=== PATIENT | female | born 1975 | race African-American/Black ===

== ENCOUNTER 2023-07-29 11:25 | Outpatient (OUT) | payer OTHER, SELFPAY ==
--- NOTE | 2023-07-29 11:55 | MM_ITS ---
Patient Name: DARREL GAVIRIA MR#: [id number] : 1975 Exam Date: 07/29/2023 Ordering Doctor: DR. Vangie Schuler D.O. RADIOLOGY REPORT PROCEDURE: MM TOMOSYNTHESIS SCREENING BI COMPARISON: None. INDICATIONS: Screening Calculator Name NCI Breast Cancer Risk Assessment Tool 5 Year Breast Cancer Risk 0.80% Lifetime Breast Cancer Risk 6.90% Personal Breast Cancer No Personal Ovarian Cancer No Treatments None Family Cancers None LOCATION: [facility] BREAST COMPOSITION: Extremely dense, which lowers the sensitivity of mammography. FINDINGS: DIAGNOSTIC CATEGORY 1--NEGATIVE. RIGHT BREAST: No significant suspicious finding. LEFT BREAST: No significant suspicious finding. RECOMMENDATIONS: ROUTINE MAMMOGRAM AND CLINICAL EVALUATION IN 12 MONTHS. PLEASE NOTE: A NORMAL MAMMOGRAM DOES NOT EXCLUDE THE POSSIBILITY OF BREAST CANCER. A CLINICALLY SUSPICIOUS PALPABLE LUMP SHOULD BE BIOPSIED. Dictated by: Juan Sargent M.D. on 07/29/2023 at 14:31 Approved by: Juan Sargent M.D. on 07/29/2023 at 14:33
== END 2023-07-29 11:26 | disposition home or self-care (01) ==
PROVIDERS: PCP Family Medicine; Visit Provider Family Medicine
DX: Z12.31 Encounter for screening mammogram for malignant neoplasm of breast (principal)
CPT/HCPCS: 77063; 77067

== ENCOUNTER 2024-09-07 09:21 | Outpatient (OUT) | payer OTHER, SELFPAY ==
--- OUTSIDE RECORDS SUMMARY | 2024-09-07 09:26 | XMS_ITS | CCD ---
Author Organization [facility] Inform ion Partnership [facility] Care Team Providers Care American Board Certified Orthotist Name Role Phone Zayda Leary Unavailable RUMSCHLAG, VANGIE Primary Care Unavailable NILL, Kolton Oneill Attending Unavailable RUMSCHLAG, VANGIE Primary Care Unavailable NILL, Kolton Oneill Attending Unavailable RUMSCHLAG, VANGIE Primary Care Unavailable NILL, Kolton Oneill Attending Unavailable NILL, Kolton Oneill Attending Unavailable RUMSCHLAG, VANGIE Primary Care Unavailable RUMSCHLAG, VANGIE Primary Care Unavailable RUMSCHLAG, VANGIE K Primary Care Physician [phone] NILL, DR HI Admitting Unavailable NILL, DR HI Attending Unavailable NILL, DR HI Consulting Unavailable NILL, DR HI Admitting Unavailable NILL, DR HI Attending Unavailable NILL, DR HI Consulting Unavailable LAWSON, MARIA DE JESUS Consulting Unavailable NILL, DR HI Admitting Unavailable NILL, DR HI Attending Unavailable NILL, DR HI Consulting Unavailable SHARP, ELVER Consulting Unavailable GEMBUS, FRANKLIN Consulting Unavailable Rumschlag DO, Vangie K Primary Care Provider [phone] POLY FENG Attending Unavailable RUMSCHLAG, VANGIE K Referring Unavailable RUMSCHLAG, VANGIE K Primary Care Unavailable RUMSCHLAG, VANGIE K Referring Unavailable RUMSCHLAG, VANGIE K Primary Care Unavailable JAZLYNTED Admitting Unavailable JAZLYNTED M Attending Unavailable RUMSCHLAG, VANGIE K Primary Care Unavailable JAZLYNGONZÁLEZAH M Attending Unavailable JAZLYN, MENNATALLAH M Referring Unavailable RUMSCHLAG, VANGIE K Primary Care Unavailable KIRSTY FAITH Attending Unavailable RUMSCHLAG, VANGIE K Primary Care Unavailable Allergies Allergy Classification Reported Allergen(s) Allergy Type Date of Onset Reaction(s) Facility (1 source) No Known Medication Allergies; Translations: [No Known Medication Allergies] Propensity to adverse reactions (disorder) [facility] Repository Medications Current Medications Medication Drug Class(es) Dates Sig (Normalized) Sig (Original) acetaminophen 500 mg oral tablet (2 sources) take 1 tablet by mouth every six hours as needed for pain acetaminophen (TYLENOL) 500 mg tablet Take 1 tablet (500 mg total) by mouth every 6 (six) hours as needed for pain. 0 Active amLODIPine 5 mg oral tablet (4 sources) Dihydropyridine Calcium Channel Priscilla Start: 05-16-2021 take 1 tablet by mouth in the morning amLODIPine (NORVASC) 5 mg tablet Take 1 tablet (5 mg total) by mouth in the morning. 0 05/16/2021 Active amLODIPine Besyl ate Active black cohosh extract 540 mg oral capsule (2 sources) black cohosh 540 mg capsule Take 540 mg by mouth. 0 Active loratadine 10 mg oral tablet (2 sources) Start: 3 take 1 tablet by mouth in the morning loratadine (CLARITIN) 10 mg tablet Take 1 tablet (10 mg total) by mouth in the morning. 0 07/19/2023 Active Naproxen (1 source) Nonsteroidal Anti-inflammatory Drug Naproxen Active predniSONE 20 mg oral tablet (1 source) Start: 2 take 1 tablet by mouth every twelve hours predniSONE 20 MG 1 tablet Orally bid for 5 day(s) Sep, Active Completed/Discontinued Medications Medication Drug Class(es) Dates Sig (Normalized) Sig (Original) cocoa butter 0.855 mg/mg / phenylephrine 0.0025 mg/mg / shark liver oil 0.03 mg/mg rectal suppository (1 source) alpha-1 Adrenergic Agonist Start: 01-19-2019 End: 08-12-2023 phenyleph-shark oil-cocoa butr (PREPARATION H) 0.25-3 % suppository Indications: Hemorrhoids during in second trimester , History of 2 sections , AMA (advanced maternal age) multigravida 35+, second trimester Insert 1 suppository into the rectum as needed for hemorrhoids. 12 suppository 0 01/19/2019 08/12/2023 Discontinued (Therapy completed) Problems Active Problems Problem Classification Problem Date Documented Da te Episodic/Chronic Abdominal hernia (8 sources) Obstructed incisional ventral hernia; Translations: [Other and unspecified ventral hernia with obstruction, without gangrene] Onset: 07-06-2022 Episodic Essential hypertension (2 sources) Hypertensive disorder; Translations: [Essential (primary) hypertension] Onset: 07-19-2022 05-20-2022 Chronic Headache; including migraine (1 source) Migraine 05-20-2022 Chronic Other aftercare (1 source) Other terminal carman (current) drug therapy; Translations: [OTH BUCKRAM SEWER CURRENT DRUG THERAPY] Onset: 07-19-2022 Episodic Other connective tissue disease (1 source) Diastasis recti 06-02-2022 Episodic Other connective tissue disease (1 source) Separation of muscle (nontraumatic), other site; Translations: [SEPARATION OF MUSCLE OTH SITE] Onset: 07-19-2022 Episodic Other nervous system disorders (1 source) Bilateral carpal tunnel syndrome; Translations: [Carpal tunnel syndrome, bilateral upper limbs] Chronic Other nervous system disorders (1 source) Carpal tunnel syndrome, bilateral upper limbs Onset: 10-14-2021 Resolved: 10-14-2021 Chronic Other nervous system disorders (1 source) Carpal tunnel syndrome 05-20-2022 Chronic Other screening for suspected conditions (not mental disorders or infectious disease) (3 sources) Patient encounter status; Translations: [Encounter for screening for malignant neoplasm of colon] Onset: 08-12-2023 08-11-2023 Episodic Other skin disorders (1 source) Mass of foot 05-20-2022 Episodic Sickle cell anemia (1 source) Sickle cell trait 05-20-2022 Chronic Unclassified (1 source) Body mass index 20-24 - normal 06-02-2022 Unclassified (1 source) CONTACT W/AND (SUSP) EXPOS COVID-19; Translations: [CONTACT W/AND (SUSP) EXPOS COVID-19] Onset: 07-15-2022 Unclassified (1 source) Colon Cancer Screening Onset: 08-12-2023 Unclassified (1 source) screening Onset: 09-23-2023 Past or Other Problems Problem Classification Problem Date Documented Da te Episodic/Chronic Other complications of (2 sources) Multigravida of advanced maternal age; Translations: [Supervision of elderly multigravida, first trimester] Onset: 11-03-2018 11-03-2018 Episodic Other complications of (2 sources) Uterine fibroids affecting ; Translations: [Maternal care for benign tumor of corpus uteri, first trimester] Onset: 11-03-2018 11-03-2018 Episodic Polyhydramnios and other problems of amniotic cavity (2 sources) Premature rupture of membranes; Translations: [Premature rupture of membranes, unspecified as to length of time between rupture and onset of labor, unspecified weeks of gestation] Onset: 04-11-2019 04-11-2019 Episodic Results Test Name Value Interpretation Reference Range [facility] General Surgery Office/Clini c Noteon 07-21-2022 General Surgery Office/Clinic Note Chief Complaint post operative follow up HPI Staff 7 day post operative follow up post epigastric hernia repair. Minimal discomfort, taking Ibuprofen. Denies bleeding or drainage. Reports some constipation, advised to take OTC stool softener. History of Present Illness 1 week s/p robotic assisted epigastric herniorrhaphy with mesh insertion; doing well; mild soreness controlled with ibuprofen; no drainage from incisions; some intermittent constipation; no strenuous activities. Physical Exam abd: soft, nontender, nondistended, incisions without erythema or drainage; no ecchymoses. Assessment/Plan 1. Irreducible epigastric hernia (K43.6: Other and unspecified ventral hernia with obstruction, without gangrene) doing well; continue to wear abd binder when up; no lifting > 10 lbs for 3 weeks; f/u in 2 weeks, call sooner if problems/questions. 2. Diastasis recti (M62.08: Separation of muscle (nontraumatic), other site) see # 1 Follow-up No qualifying data available Problem List/Past Medical History Ongoing BMI 23.0-23.9, adult Carpal tunnel syndrome Diastasis recti HTN (hypertension) Irreducible epigastric hernia Mass of right foot Migraines Sickle cell trait Umbilical hernia Historical No qualifying data Procedure/Surgical History Repair of epigastric hernia (07/14/2022), section, section, section, Excision of lipoma of back. Medications amLODIPine 5 mg Tab, 5 mg= 1 tab(s), Oral, Daily Allergies No Known Allergies No Known Medication Allergies Social History Alcohol - Denies Alcohol Use, 06/02/2022 Substance Abuse - Denies Substance Abuse, 06/02/2022 Tobacco Never (less than 100 in lifetime) Tobacco Use:. Never Smokeless Tobacco Use:., 06/02/2022 Family History Hypertension: Sister. Normal [facility] Comment on above: Result Comment: Elec tronically Signed By: SAIRA CHE, Kolton Oshea\Date and Time Signed: 07/21/22 17:19 EST Operative Reporton Operative Report [id number] .00CD:127 Normal [facility] PREG HCG QUALon 07-14-2022 , QUAL Negative Normal NEGATIVE [facility] Comment on above: Performed By: #### P REG #### [facility] [address] [place] [address] Dr. Dena Powers Lab Reportson 07-12-2022 Lab Reports [id number] .00CD:127 Normal [facility] Covid-19 PCR (CVDTBH)on 07-01 SARS-CoV-2 (COVID-19) RNA RACQUEL+probe Ql (Unsp spec) Not detected Normal NOT DETECTED [facility] Comment on above: Result Comment: When diagnostic testing is negative, the possibility of a false negative should be considered in the context of a patient's recent exposures and the presence of clinical signs and symptoms consistent with SARS-CoV-2. This test is not yet approved or cleared by the [place] FDA. When there are no FDA-approved or cleared tests available, and other criteria are met, FDA can make tests available under an emergency access mechanism called an Emergency Use Authorization (EUA). The EUA for this test is supported by the [place] of Health and Human Service's declaration that circumstances exist to justify the emergency use of in vitro diagnostics for the detection and/or diagnosis of the virus that causes COVID-19. This EUA will remain in effect for the duration of the COVID-19 declaration justifying emergency of IVDs, unless it is terminated or revoked by the FDA (after which the test may no longer be used). Performed By: #### C VDTBH #### [facility] [address] [place] [address] Dr. Dena Powers ECG 12-Leadon 07-02-2022 ECG 12-Lead [id number] .[id number]:127 Normal [facility] Consent for Procedure/Surger yon 06-03-2022 Consent for Procedure/Surgery [id number] .[id number]:127 [facility] Physician Referralon 022 Physician Referral [id number] .00CD:127 [facility] Vital Signs Date Time Vital Sign Value Performing Clinician Facility 09-15-2023 11:09-0500 Body height 154.9 cm Pmh 1 [facility] 09-15-2023 11:09-0500 Body mass index (BMI) [Ratio] 22.48 kg/m2 Pm 1 [facility] 09-15-2023 11:09-0500 Body weight 53.98 kg Pm 1 [facility] 08-12-2023 11:18-0500 Body mass index (BMI) [Ratio] 22.17 kg/m2 Poly Medinaoll FRUIT INSPECTOR-POWER LINE INSTALLER AND REPAIRER Work Phone: [facility] [employer] 08-12-2023 11:18-0500 Body weight 54.98 kg Poly Feng FRUIT INSPECTOR-POWER LINE INSTALLER AND REPAIRER Work Phone: [facility] [employer] [facility] 10-14-2021 12:10-0400 Body height 154.94 cm Zayda Leary Other [facility] Other 10-14-2021 12:10-0400 Body mass index (BMI) [Ratio] 23.05 kg/m2 Zayda Leary Other [facility] Other 10-14-2021 12:10-0400 Body temperature 97.1 [degF] Zayda Leary Other [facility] Other 10-14-2021 12:10-0400 Body weight 55.34 kg Zayda Leary Other [facility] Other 10-14-2021 12:10-0400 Diastolic blood pressure 90 mm[Hg] Zayda Leary Other [facility] Other 10-14-2021 12:10-0400 Respiratory rate 18 /min Zayda Leary Other [facility] Other 10-14-2021 12:10-0400 SaO2% (BldA) [Mass fraction] 100 % Zayda Leary Other [facility] Other 10-14-2021 12:10-0400 Systolic blood pressure 143 mm[Hg] Zayda Leary Other [facility] Other Encounters Encounter Date Encounter Type Care Provider Facility Start: 09-24-2023 End: 09-24-2023 Evaluation and management of inpatient KIRSTY Kaitlin FAITH [facility] Start: 09-23-2023 End: 09-24-2023 Evaluation and management of inpatient TED Mckeon JAZLYN [facility] Start: 09-15-2023 End: 09-15-[address] [facility] Pat Phone Call Provider 1 [facility] - Pre Admit Start: 09-15-2023 End: 09-15-2023 ambulatory VANGIE MARINORIChelsy [facility] Start: 08-12-2023 End: 08-12-2023 ambulatory POLY A FENG [facility] Start: 08-12-2023 End: 08-12-2023 Patient encounter procedure Poly Feng FRUIT INSPECTOR-POWER LINE INSTALLER AND REPAIRER Work Phone: [facility] Comment on above: Encounter for screen ing colonoscopy (Primary Dx) Start: 08-04-2022 ambulatory VANGIE BOLAND Facilit y:HETAL Sin Start: 08-04-2022 End: 08-04-2022 Patient encounter procedure Kolton CHÁVEZ General Surgery Saira/Said Janaury Start: 07-21-2022 End: 07-22-2022 ambulatory VANGIE JAMILALAG Facility: [facility] Start: 07-15-2022 Encounter for preprocedural laboratory examination DR KOLTON CHÁVEZ [facility] Start: 07-14-2022 End: 07-15-2022 ambulatory Kolton CHÁVEZ Facility:CD:[id number] Start: 07-10-2022 End: 07-11-[address] KOTLON CHÁVEZ Facility:[facility] Start: 07-10-2022 End: 07-11-2022 Encounter for preprocedural laboratory examination DR KOLTON CHÁVEZ Facility:[facility] Start: 07-06-2022 Encounter for preprocedural cardiovascular examination DR KOLTON CHÁVEZ [facility] Start: 07-01-2022 End: 07-02-[address] KOLTON CHÁVEZ Facility:[facility] Start: 07-01-2022 End: 07-02-2022 Encounter for preprocedural cardiovascular examination DR KOLTON CHÁVEZ Facility:[facility] Start: 06-02-2022 End: 06-03-2022 ambulatory VANGIE [facility]ILALAG [facility] Start: 05-11-2022 ambulatory VANGIE JAMILALAG Facilit y:[facility] Start: 10-14-2021 End: 10-14-2021 ambulatory Zayda Leary Other [facility] Other Start: 10-14-2021 Office outpatient ne w 20 minutes Zayda Leary [facility] Procedures Date Procedure Procedure Detail Performing Clinician Start: 07-14-2022 Repair of epigastric hernia Kolton CHÁVEZ Start: 04-11-2019 H/O: section Hx of section Polyjrezy Feng FRUIT INSPECTOR-POWER LINE INSTALLER AND REPAIRER Work Phone: section Kolton Culp Excision of lipoma o f back Kolton CHÁVEZ Plan of Treatment Date Care Activity Detail Author Start: 02-13-2029 DTaP,Tdap and Td Vaccines (2 - Td or Tdap) DTaP,Tdap and Td Vaccines (2 - Td or Tdap) [facility] Start: 09-07-2024 Tobacco Screening Tobacco Screening [facility] Start: 08-12-2024 Adult BMI Screening Adult BMI Screen ing [facility] Start: 08-12-2024 Tobacco Screening Tobacco Screening [facility] Start: 09-23-2023 End: 09-23-2023 Admission to same day surgery center 09/23/2023 11:20 AM EST - 09/23/2023 12:00 PM [facility] Surgery [facility] [address] [place] [address] Ted Sauer MD [address] [place] [address] COLONOSCOPY DIAGNOSTIC / SCREENING [76391 (CPT )] [facility] Comment on above: COLONOSCOPY DIAGNOST IC / SCREENING [33028 (CPT )] Start: 09-23-2023 End: 09-23-2023 Colonoscopy flx dx w/collj spec when pfrmd COLONOSCOPY DIAGNOSTIC / SCREENING Screen for colon cancer 09/23/2023 11:20 AM [facility] Start: 09-23-2023 Subsequent hospital visit by physician 09/23/2023 11:20 AM EST Hospital Encounter [facility] [address] [place] [address] Ted Sauer MD [address] [place] [address] [facility] Start: 09-23-2023 End: 09-23-2023 Admission to same day surgery center 09/23/2023 10:10 AM EST - 09/23/2023 10:50 AM [facility] Surgery [facility] Surgery [address] [place] [address] Ted Sauer MD [address] [place] [address] COLONOSCOPY DIAGNOSTIC / SCREENING [74542 (CPT )] [facility] Comment on above: COLONOSCOPY DIAGNOST IC / SCREENING [28342 (CPT )] Start: 09-23-2023 End: 09-23-2023 Anesthesia consultation 09/23/2023 10:10 AM EST Anesthesia Event [facility] [address] [place] [address] Kirsty Faith, DO [address] [facility] [place], [place] [id number] [facility] Start: 09-23-2023 End: 09-23-2023 Colonoscopy flx dx w/collj spec when pfrmd COLONOSCOPY DIAGNOSTIC / SCREENING Screen for colon cancer 09/23/2023 10:10 AM EST [facility] Start: 09-23-2023 Subsequent hospital visit by physician 09/23/2023 10:10 AM EST Hospital Encounter [facility] [address] [place] [address] Ted Suaer MD [address] [place] [address] [facility] Start: 09-15-2023 End: 09-15-2023 ambulatory 09/15/2023 4:10 PM EST Support Visit [facility] - Pre Admit [address] [place] [address] [facility] Pre Admit Start: 01-27-1996 Screening for malign ant neoplasm of cervix Pap Smear [facility] Start: 1987 Depression Screening Depression Scre ening [facility] End: 08-11-2024 Colonoscopy Colonoscopy GI Routine Encounter for screening colonoscopy 1 Occurrences starting 08/12/2023 until 08/11/2024 [facility] Work Phone: Comment on above: 1 Occurrences starti ng 08/12/2023 until 08/11/2024 Payers Date Payer Category Payer Private Health Insurance [id number] 2017 Private Health Insurance [facility] [id number] 2017-Present [phone] [address] [address] [place] [address] [id number] 1975 Unknown [id number] [id number] .2.727 1975 Unknown [id number] [id number] .2.727 1975 Unknown [id number] 2.16.840.1.161446.3.579 .2.727 1975 Unknown [id number] 2.16.840.1.588202.3.579 .2.727 1975 Unknown [id number] 2.16.840.1.468828.3.579 .2.593 1975 Unknown [id number] 2.16.840.1.347343.3.579 .2.593 1975 Unknown [id number] 2.16.840.1.735215.3.579 .2.593 1975 Unknown [id number] 2.16.840.1.604245.3.579 .2.1286 1975 Unknown [id number] 2.16.840.1.166302.3.579 .2.1286 1975 Unknown [id number] 2.16.840.1.405271.3.579 .2.1286 1975 Unknown [id number] 2.16.840.1.691553.3.579 .2.1286 1975 Unknown [id number] 2.16.840.1.732428.3.579 .2.1286 1975 Unknown [id number] [id number] .2.1286 1959 Private Health Insurance [id number] Private Health Insurance [id number] Social History Date Type Detail Facility Start: 10-31-2018 End: 09-11-2020 [facility] Assigned At [facility] Start: 06-02-2022 End: 08-12-2023 Tobacco smoking status Never smoked tobacco (finding) [facility] Tobacco smoking status Never [facility] Start: 08-12-2023 Tobacco use and exposure Smokeless tobacco non-user [facility] Start: 08-12-2023 End: 09-15-2023 Alcohol intake Current non-drinker of alcohol (finding) [facility] Start: 10-31-2018 End: 09-11-2020 History of Social function [facility] Start: 1975 Sex Assigned At Not on file [facility] Clinical Notes 10-14-2021 to 09-15-2023 Perioperative Nursing Note - Adriana Olivier RN - 09/15/2023 11:09 AM ESTPerioperative Nursing Note - Adriana Olivier RN - 09/15/2023 11:09 AM EST Note Date & Type Note Facility 09-15-2023 Nurse Note Preoperative Education Checklist- General Surgery date: 09/23/23 Surgery time: 1010a Arrival time: 810a 1. Bring a photo ID and your insurance card with you the day of surgery. You will check in at the main lobby of the [facility]- registration desk is straight ahead as soon as you walk in. Tell them you are here for surgery. 2. If you have a Living Will/Durable Power of Clinical Care Manager for Health Care that is not on file here, please bring a copy the day of surgery. 3. Please shower/bathe the night before surgery with the provided soap or wipes. Do not shower the morning of surgery- you will do use wipes when you arrive here at the hospital before getting into your surgical gown. Do not shave the area of your procedure for 2 days prior to your surgery. 4. NO powder, lotion, perfume/cologne, aftershave, make-up, deodorant, or hair products after you have bathed. 5. NO nail swedish/acrylic on at least one finger. If you are having a hand, wrist or foot surgery then all nail swedish and artificial/acrylic nails must be removed from that hand or foot. 6. Avoid ALL Aspirin and non-steroidal anti-inflammatory drugs and certain vitamins (Ibuprofen, Advil, Aleve, Excedrin, Meloxicam, Celebrex, fish/krill oil, etc.) for 7 days prior to surgery as instructed by your surgeon and/or your prescribing doctor. Tylenol IS ALLOWED. If you are on Ticlid, Xarelto, Eliquis, Pradaxa, Plavix or Coumadin, please check with your prescribing doctor for instructions for when to stop them. 7. If you use an inhaler, continue to use it routinely. 8. Nothing to eat or drink (not even water, gum, mints, or hard candy!) AFTER midnight prior to your surgery. 9. Take only medications that you are instructed to on the morning of surgery with a TINY SIP OF WATER. 10. Choose a responsible adult that will be able to drive you home when you are discharged from your hospital stay for your surgery and can stay with you in your home for 24 hours after your procedure. You must NOT drive any vehicle or operate any machinery for 24 hours after surgery. 11. When you dress for your appointment, please wear loose fitting clothing that is appropriate to accommodate your surgical area procedure. BRING WITH YOU ANY DEVICES YOU MAY NEED: ROM hose, ice machine, sling/swath, brace or special shoe, oversized zip-up or button up shirt, CPAP machine if staying overnight. 12. Do NOT wear jewelry, watches, or any piercings or metal for surgery- leave these valuables and money at home. 13. Do NOT wear contact lenses for surgery- glasses are okay if needed. 14. The anesthesiologist will talk with you the day of surgery and will ask you to sign a Consent Form. 15. Refrain from smoking or any type of tobacco use for at least 8 hours and marijuana for 24 hours prior to arrival for your surgery. 16. If a GREEN BLOOD band is given to you, please bring it with you for the day of surgery. 17. Notify your surgeon if you develop any illness before your surgery. 18. If you are staying overnight, please DO NOT BRING your home medications with you. 19. If you have any questions prior to surgery, please call the Preadmission Testing office at [phone], Mon.-Fri. 7 a.m.-3 p.m. Leave a voicemail if needed. Pre-Surgery Instructions: Medication Instructions acetaminophen (TYLENOL) 500 mg tablet Stop taking 0 days prior to procedure amLODIPine (NORVASC) 5 mg tablet Pt takes in evening black cohosh 540 mg capsule Stop taking 0 days prior to procedure loratadine (CLARITIN) 10 mg tablet Stop taking 0 days prior to procedure [facility] Art Qualified 09-15-2023 Miscellaneous Notes Preoperative Education Checklist- General Surgery date: 09/23/23 Surgery time: 1010a Arrival time: 810a 1. Bring a photo ID and your insurance card with you the day of surgery. You will check in at the main lobby of the [facility]- registration desk is straight ahead as soon as you walk in. Tell them you are here for surgery. 2. If you have a Living Will/Durable Power of Clinical Care Manager for Health Care that is not on file here, please bring a copy the day of surgery. 3. Please shower/bathe the night before surgery with the provided soap or wipes. Do not shower the morning of surgery- you will do use wipes when you arrive here at the hospital before getting into your surgical gown. Do not shave the area of your procedure for 2 days prior to your surgery. 4. NO powder, lotion, perfume/cologne, aftershave, make-up, deodorant, or hair products after you have bathed. 5. NO nail swedish/acrylic on at least one finger. If you are having a hand, wrist or foot surgery then all nail swedish and artificial/acrylic nails must be removed from that hand or foot. 6. Avoid ALL Aspirin and non-steroidal anti-inflammatory drugs and certain vitamins (Ibuprofen, Advil, Aleve, Excedrin, Meloxicam, Celebrex, fish/krill oil, etc.) for 7 days prior to surgery as instructed by your surgeon and/or your prescribing doctor. Tylenol IS ALLOWED. If you are on Ticlid, Xarelto, Eliquis, Pradaxa, Plavix or Coumadin, please check with your prescribing doctor for instructions for when to stop them. 7. If you use an inhaler, continue to use it routinely. 8. Nothing to eat or drink (not even water, gum, mints, or hard candy!) AFTER midnight prior to your surgery. 9. Take only medications that you are instructed to on the morning of surgery with a TINY SIP OF WATER. 10. Choose a responsible adult that will be able to drive you home when you are discharged from your hospital stay for your surgery and can stay with you in your home for 24 hours after your procedure. You must NOT drive any vehicle or operate any machinery for 24 hours after surgery. 11. When you dress for your appointment, please wear loose fitting clothing that is appropriate to accommodate your surgical area procedure. BRING WITH YOU ANY DEVICES YOU MAY NEED: ROM hose, ice machine, sling/swath, brace or special shoe, oversized zip-up or button up shirt, CPAP machine if staying overnight. 12. Do NOT wear jewelry, watches, or any piercings or metal for surgery- leave these valuables and money at home. 13. Do NOT wear contact lenses for surgery- glasses are okay if needed. 14. The anesthesiologist will talk with you the day of surgery and will ask you to sign a Consent Form. 15. Refrain from smoking or any type of tobacco use for at least 8 hours and marijuana for 24 hours prior to arrival for your surgery. 16. If a GREEN BLOOD band is given to you, please bring it with you for the day of surgery. 17. Notify your surgeon if you develop any illness before your surgery. 18. If you are staying overnight, please DO NOT BRING your home medications with you. 19. If you have any questions prior to surgery, please call the Preadmission Testing office at [phone], Mon.-Fri. 7 a.m.-3 p.m. Leave a voicemail if needed. Pre-Surgery Instructions: Medication Instructions acetaminophen (TYLENOL) 500 mg tablet Stop taking 0 days prior to procedure amLODIPine (NORVASC) 5 mg tablet Pt takes in evening black cohosh 540 mg capsule Stop taking 0 days prior to procedure loratadine (CLARITIN) 10 mg tablet Stop taking 0 days prior to procedure documented in this encounter [facility] 08-12-2023 History of Presen t illness Narrative Images from the original note were not included. Chief Complaint: Colon cancer screening History of Present Illness Darrel Brice is a 48 y.o. female who presents to the office for colon cancer screening. This is her first colonoscopy. She denies any changes in her bowels including diarrhea, abdominal pain, melena, hematochezia, unexplained weight loss. She reports intermittent constipation, nothing persistent. She drinks 32 oz of water daily. There is no family history of colon cancer. Review of Systems Constitutional: Negative for fever and unexpected weight change. HENT: Negative for trouble swallowing. Respiratory: Negative for shortness of breath. Cardiovascular: Negative for chest pain and palpitations. Gastrointestinal: Negative for nausea, vomiting, abdominal pain, diarrhea, constipation, blood in stool and black tarry stool. Genitourinary: Negative for dysuria and difficulty urinating. Musculoskeletal: Negative for joint swelling and gait problem. Skin: Negative for rash and wound. Allergic/Immunologic: Negative for immunocompromised state. Neurological: Negative for dizziness, weakness and light-headedness. Hematological: Does not bruise/bleed easily. Psychiatric/Behavioral: Negative for behavioral problems and confusion. Past Medical History: Diagnosis Date Hemorrhoids Hypertension Past Surgical History: Procedure Laterality Date REPEAT WITH TUBAL LIGATION N/A 04/11/2019 Performed by Sakina Smallwood MD at [facility] OR SECTION 02/12/04, 03/17/17, & 2019 CYST REMOVAL VENTRAL HERNIA REPAIR WISDOM TOOTH EXTRACTION No Known Allergies Current Outpatient Medications: acetaminophen (TYLENOL) 500 mg tablet, Take 1 tablet (500 mg total) by mouth every 6 (six) hours as needed for pain., Disp: , Rfl: amLODIPine (NORVASC) 5 mg tablet, Take 1 tablet (5 mg total) by mouth in the morning., Disp: , Rfl: black cohosh 540 mg capsule, Take 540 mg by mouth., Disp: , Rfl: loratadine (CLARITIN) 10 mg tablet, Take 1 tablet (10 mg total) by mouth in the morning., Disp: , Rfl: Social History Socioeconomic History Marital status: Spouse name: Not on file Number of children: Not on file Years of education: Not on file Highest education level: Not on file Occupational History Not on file Tobacco Use Smoking status: Never Smokeless tobacco: Never Vaping Use Vaping Use: Never used Substance and Sexual Activity Alcohol use: No Drug use: No Sexual activity: Defer Other Topics Concern Not on file Social History Narrative Not on file Social Determinants of Health Financial Resource Strain: Not on file Food Insecurity: No Food Insecurity (08/12/2023) Hunger Screening Food Insecurity - Worry: Never True Food Insecurity - Inability: Never True Transportation Needs: Not on file Physical Activity: Not on file Stress: Not on file Social Connections: Not on file Interpersonal Safety: Not on file History reviewed. No pertinent family history. Objective Physical Exam Constitutional: Appearance: Normal appearance. HENT: Head: Normocephalic and atraumatic. Mouth/Throat: Mouth: Mucous membranes are moist. Eyes: Pupils: Pupils are equal, round, and reactive to light. Cardiovascular: Rate and Rhythm: Normal rate. Pulmonary: Effort: Pulmonary effort is normal. No respiratory distress. Abdominal: General: There is no distension. Palpations: Abdomen is soft. Musculoskeletal: General: Normal range of motion. Cervical back: Normal range of motion. Skin: General: Skin is warm and dry. Neurological: Mental Status: She is alert and oriented to person, place, and time. Mental status is at baseline. Vital Signs: Weight 55 kg (121 lb 3.2 oz), currently . Respiratory Source: No data recorded Admission Weight: Weight: 55 kg (121 lb 3.2 oz) Labs Lab Results Component Value Date WBC 11.0 (H) 04/12/2019 HGB 9.1 (L) 04/12/2019 HCT 28.1 (L) 04/12/2019 MCV 79 (L) 04/12/2019 PLT 160 04/12/2019 No results found for: GLU , CALCIUM , NA , K , CO2 , CL , BUN , CREATININE No results found for: AMYLASE No results found for: LIPASE No results found for: ALT , AST , GGT , ALKPHOS , LABBILI No results found for: INR , PROTIME Assessment Darrel Brice is a 48 y.o.female who presents to the office for screening colonoscopy. Plan Colonoscopy with possible biopsy and/or polypectomy. Risks, benefits, and alternatives discussed with patient. Educated on bowel evacuation preparation. Patient verbalizes understanding and wishes to proceed. Evaluation included: Preparing to see the patient (e.g., review of tests) Obtaining and/or reviewing separately obtained history Performing a medically appropriate examination and/or evaluation Counseling and educating the patient/family/caregiver Referring and communicating with other health animal caregiver Encounter for screening colonoscopy [Z12.11] VIVI ROSAS [facility] This note was created with the assistance of a speech recognition program. While intending to generate a timely document that accurately reflects the content of the visit, no guarantee can be provided that every grammatical or spelling mistake has been or will be identified or corrected. Thank you for your understanding. VIVI Rosas 08/12/23 1150 documented in this encounter [facility] 07-21-2022 Hospital Discharg e instructions Follow Up Care 07/21/2022 16:44:39 With:SAIRA CHE, Kolton Oneill, ALAYNA Address: [address] [place], [place] [id number]- When: only if needed General [facility] 07-14-2022 Note OPERATIVE NOTE OPERATION DATE: 07/14/2022 PREOPERATIVE DIAGNOSIS: Epigastric hernia. POSTOPERATIVE DIAGNOSIS: Epigastric hernia. PROCEDURE: Epigastric herniorrhaphy with ProGrip mesh insertion, robotic assisted. SURGEON: Kolton Chávez M.D. ANESTHESIA: General endotracheal as well as Exparel solution. INDICATIONS AND CONSENT: Patient is a 47-year-old female with a long history of enlarging, symptomatic, non-reducible epigastric hernia. Indications, risks, benefits, alternatives of proceeding with robotic assisted repair with mesh insertion was explained extensively to the patient, including the risks of bleeding, infection, scarring, pain, recurrence, bowel injury, blood clot, pulmonary embolus, heart attack, anesthetic complications, need for further surgery or open surgery or mesh removal. All of her questions were answered. Informed consent was obtained. PROCEDURE: Patient brought to the operating room, placed in the supine position. General anesthesia was induced. Ornelas catheter was inserted using sterile technique. Abdomen was prepped and draped in the usual sterile fashion. A right subcostal port site incision was made with a scalpel blade and carried down through subcutaneous tissue using blunt dissection. The fascia was grasped and incised. Two 0 Vicryl stay sutures placed on either side of the midline fascia. Mable trocar was then inserted and secured using the stay sutures. Abdomen was then insufflated with the carbon dioxide to a pressure of 15 mm/Hg. The scope was then inserted. Abdomen was visualized as was the hernia. Two 8 mm ports were then placed; one in the right mid abdomen laterally, and one in the right lower quadrant laterally also, all under direct visualization. A #1 non-absorbable V-Loc suture was then placed into the abdomen in the falciform ligament for safe keeping. Robot was then docked, targeted. The bipolar grasper was placed in the #1 arm and the monopolar scissors in the #3 arm. I then broke scrub and went to the console. The peritoneal flap was made, beginning on the patient's right, to the right of the midline, up near the falciform ligament. The peritoneum was incised and a pocket was then created, working towards the midline and then across the left side to the edge of the rectus sheath. There was noted to be a prominent diastasis recti. There was a 2 cm epigastric hernia containing preperitoneal fat. This was reduced. No evidence of umbilical defect. Once the pocket was adequately created, the grasper and scissors were traded out for two needle drivers. The #1 V-Loc was then used to close the defect in the diastasis, beginning just above the umbilicus and extending up to above the epigastric hernia to the area of the falciform ligament. Suture was then run back inferiorly with good closure of the defect. The suture was then cut. It was then brought out through the right subcostal Mable under direct visualization. The ProGrip mesh, 10 x 6 cm, was then inserted, along with two absorbable 2-0 V-Loc sutures. The mesh was then positioned with the sticky side up against the abdominal wall in the pocket. It had to be slightly enlarged in order to accommodate the mesh. Once it was in good position, the peritoneum was then closed with the running 2-0 V-Loc suture. Some of the preperitoneal fat was used as well to bolster the repair and the upper edge, right sided edge of the mesh was tacked to the abdominal wall with the suture as well. There was good closure with no evidence of defects. There was good hemostasis. The suture was then cut. It was then brought out through the right subcostal Mable under direct visualization, along with the other needle that was not used. The other needle funeral car driver was removed. Robot was undocked. I then scrubbed back in and examined the repair. It was intact with good hemostasis. No defects within the peritoneum. All ports were examined upon withdrawal of the ports. There was noted to be good hemostasis. The right subcostal port site fascia was closed with a 0 Vicryl figure of eight suture. All ports were injected with Exparel solution as well as the area around the epigastric hernia. The skin was then closed with interrupted 4-0 subcuticular Monocryl sutures and skin glue. Sterile dressings were applied as well as a pressure dressing at the hernia site and abdominal binder. Patient tolerated procedure well, was extubated and sent to recovery room in good condition. CC: Patient's family physician [facility] 06-02-2022 Note Chief Complaint consultation for umbilical hernia HPI Staff 47 year old female presents on consultation from Dr. Chapin for umbilical hernia. Reports intermittent bulge above umbilicus x 4 years. Intermittent tenderness, especially with heavy lifting. Denies nausea or vomiting. Bowels moving well. Urinating without difficulty. No imaging. History of Present Illness 47 yo female with h/o htn, migraines, sickle cell trait; referred for hernia; patient reports 4 year h/o enlarging epigastric bulge; sore at times, no skin changes, no N/V; no bowel changes; no imaging studies; partially reducible; abdominal operations significant for x 3; no asa or NSAID use; no tobacco use; does do heavy lifting at times. Review of Systems PHQ Score Initial Depression Screen Score: 0 ROS - Provider Constitutional: no fever, no sweats, no weight loss. Eyes: no glasses, no blurred vision, no visual loss. ENMT: no dentures, no hoarseness, no swallowing difficulties, no hearing loss, no ear infection(s), no nose bleeds. Cardiovascular: normal blood pressure, no chest pain, regular heartbeat, no heart murmur. Respiratory: no shortness of breath, no cough, no asthma, no wheezing. Gastrointestinal: no nausea, no vomiting, no diarrhea, no constipation, no blood in stool, no change in bowel habits, mild abdominal pain, no hepatitis. Genitourinary: no kidney stones, no urine infection, no dysuria. Musculoskeletal: no pain, no weakness. Skin: no changing moles, no rash, no skin lumps. Neurologic: no seizures, no epilepsy, no headache. Psychiatric: no emotional or psychiatric problem. Heme/Lymph: no bleeding problems, no anemia, no blood clots, no transfusions. Allergy/Immunologic: no swollen lymph nodes/glands, no IV drug abuse. Other: Additional ROS info: Except as noted in the above Review of Systems and in the History of Present Illness, all other systems have been reviewed and are negative or noncontributory. Physical Exam Vitals & Measurements HR: 72(Peripheral) RR: 16 BP: 138/96 HT: 61 in HT: 154.9 cm WT: 57.2 kg WT: 125.84 lb BMI: 23.84 HEENT: normal conjunctiva, sclera clear, no scleral icterus, EOM intact, PERRLA, oral mucosa moist without lesions. Neck: trachea midline, no mass, symmetric, no thyromegaly or nodules, no adenopathy Respiratory: lungs CTA, respirations non labored. Cardiovascular: regular rate and rhythm, no murmur, no pedal edema or varicosities. Gastrointestinal: soft, non distended, no tenderness, no masses, 3 cm epigastric hernia, partially reducible; no palpable hernias, diastasis recti yes, no hepatosplenomegaly; normal bs Lymphatic: no cervical adenopathy, Musculoskeletal: normal gait, digits and nails without infection, nodes, cyanosis, clubbing. Skin: no rashes, no lesions, no ulcers, no subcutaneous nodules, induration. Psychiatric/Neuro: oriented to time, place, person, judgement normal, affect appropriate for age, insight intact, no focal deficits. Tests: review of old records completed, Discussed surgical options, risks, and possible complications with patient. Assessment/Plan 1. Irreducible epigastric hernia (K43.6: Other and unspecified ventral hernia with obstruction, without gangrene) plan robotic-assisted epigastric hernia repair with mesh at [facility], informed consent obtained. Ancef 2 gms IV prior to OR SCDs 2. Diastasis recti (M62.08: Separation of muscle (nontraumatic), other site) see # 1 Follow-up No qualifying data available Problem List/Past Medical History Ongoing BMI 23.0-23.9, adult Carpal tunnel syndrome Diastasis recti HTN (hypertension) Irreducible epigastric hernia Mass of right foot Migraines Sickle cell trait Umbilical hernia Historical No qualifying data Procedure/Surgical History section, section, section, Excision of lipoma of back. Medications amLODIPine 5 mg Tab, 5 mg= 1 tab(s), Oral, Daily Allergies No Known Allergies No Known Medication Allergies Social History Alcohol - Denies Alcohol Use, 06/02/2022 Substance Abuse - Denies Substance Abuse, 06/02/2022 Tobacco Never (less than 100 in lifetime) Tobacco Use:. Never Smokeless Tobacco Use:., 06/02/2022 Family History Hypertension: Sister. [facility] Comment on above: Result Comment: Elec tronically Signed By: SAIRA CHE, Kolton Hu.sarah\Date and Time Signed: 06/02/22 17:07 EDT 10-14-2021 Evaluation note Encounter Date Diagnosis Assessment Notes Sep, Bilateral carpal tunnel syndrome (ICD-10 - G56.03) Wear your wrist braces as much as possible. Take the prednisone as prescribed until gone. Take your naproxen as prescribed as needed for pain. Follow-up with your family physician soon as possible regarding further care. FREEjit Other Evaluation + Plan note No data available for this section [facility] [place] Evaluation note* Diagnosis Encounter for screening colonoscopy- Primary Screen for colon cancer Special screening for malignant neoplasms, colon [facility] - Reported* Type Description Date Medical History hypertension FREEjit Other InstructionsNot on filedocumented in this encounter [facility] filed[facility] in [facility] No data available for this section [facility] [place] Summary Purpose Family History No Family History Records FoundNo Family History Records FoundNo Family History Records FoundNo Family History Records Found Advance Directives No Advanced Directives Records FoundLatest Code Status on File Code Status Date Activated Date Inactivated Comments Full Code 04/11/2019 9:06 AM 04/14/2019 2:51 PM Additional Source Comments REASON FOR VISIT (unrecogniz ed section and content) Reason Comments Colon Cancer Screening Screening colonos copy INFORMATION SOURCE (unrecogn ized section and content) DATE CREATED AUTHOR 08/03/2022 Melrude Janak [facility] DATE CREATED AUTHOR AUTHOR'S ORGANIZ ATION 08/18/2022 [facility] DATE CREATED AUTHOR AUTHOR'S ORGANIZ ATION 08/14/2023 [facility] DATE CREATED AUTHOR AUTHOR'S ORGANIZ ATION 09/30/2023 [facility] Patient Care team informatio n (unrecognized section and content) [employer] Board Certified Orthotist Relationship Specialty Start Date End Date Vangie Boland DO [address] [place] [address] PCP - General Family Medicine 07/19/23 [employer] Board Certified Orthotist Relationship Specialty Start Date End Date Vangie Boland DO [address] [place] [address] PCP - General Family Medicine 07/19/23 FOR RECORDS PERTAINING TO PATIENTS WHO ARE OR HAVE BEEN ENROLLED IN A CHEMICAL DEPENDENCY/SUBSTANCEABUSE PROGRAM, SOME INFORMATION MAY BE OMITTED. This clinical summary was aggregated from multiple sources. Caution should be exercised in using it in the provision of clinical care. This summary normalizes information from multiple sources, and as a consequence, information in this document may materially change the coding, format and clinical context of patient data. In addition, data may be omitted in some cases. CLINICAL DECISIONS SHOULD BE BASED ON THE PRIMARY CLINICAL RECORDS. [facility]. provides no warranty or guarantee of the accuracy or completeness of information in this document.
--- NOTE | 2024-09-07 09:30 | MM_ITS ---
Patient Name: DARREL GAVIRIA MR#: [id number] : 1975 Exam Date: 09/07/2024 Ordering Doctor: Sofi Esquivel RADIOLOGY REPORT PROCEDURE: MM TOMOSYNTHESIS SCREENING BI COMPARISON: MM TOMOSYNTHESIS SCREENING BI, 07/29/2023. INDICATIONS: Screening for malignant neoplasm Calculator Name NCI Breast Cancer Risk Assessment Tool 5 Year Breast Cancer Risk 0.80% Lifetime Breast Cancer Risk 6.80% Personal Breast Cancer No Personal Ovarian Cancer No Treatments None Family Cancers None LOCATION: [facility] BREAST COMPOSITION: The breasts are extremely dense, which lowers the sensitivity of mammography. FINDINGS: DIAGNOSTIC CATEGORY 2--BENIGN FINDING. NO CHANGE FROM COMPARISON. Scattered benign-appearing lymph nodes are present. RIGHT BREAST: No significant suspicious finding. LEFT BREAST: No significant suspicious finding. RECOMMENDATIONS: ROUTINE MAMMOGRAM AND CLINICAL EVALUATION IN 12 MONTHS. PLEASE NOTE: A NORMAL MAMMOGRAM DOES NOT EXCLUDE THE POSSIBILITY OF BREAST CANCER. A CLINICALLY SUSPICIOUS PALPABLE LUMP SHOULD BE BIOPSIED. Dictated by: Gonsalo Palacios MD on 09/07/2024 at 14:39 Approved by: Gonsalo Palacios MD on 09/07/2024 at 14:42
== END 2024-09-07 09:22 | disposition home or self-care (01) ==
LOC: MAMMO 09:22
PROVIDERS: PCP Family Medicine; Visit Provider Nurse Practitioner Family
DX: Z12.31 Encounter for screening mammogram for malignant neoplasm of breast (principal)
CPT/HCPCS: 77063; 77067